=== PATIENT | male | born 1945 | race Caucasian/White ===

== ENCOUNTER 2017-11-15 11:38 | Inpatient (IN) | payer OTHER ==
[~2017-11-15] VITALS: Ht 182.9 cm; Wt 71.0 kg
--- NOTE | 2017-11-15 14:30 | ED UPPER/LOWER EXTREMITY COMPL ---
History of Present Illness General Chief Complaint: Lower Extremity Problems Stated Complaint: LOWER EXTREMITY SWELLING Source: patient Exam Limitations: no limitations Vital Signs & Intake/Output Vital Signs & Intake/Output Vital Signs Date Time Temp Pulse Resp B/P B/P Pulse O2 O2 Flow FiO2 Mean Ox Delivery Rate 11/15 1829 98.2 82 17 122/60 96 Room Air 11/15 1523 98.0 75 18 119/57 99 Room Air 11/15 1351 97.0 88 16 119/58 94 Room Air 11/15 1213 98.6 80 16 107/61 99 Room Air Allergies Coded Allergies: No Known Allergies (11/15/17) Triage Note: 72M C/O SWELLING TO BILATERAL FEET X4 DAYS. DENIES CARDIAC HISTORY, DENIES COUGH, SOB OR CHEST PAIN. PT HAS HX OF URINARY RETENTION AND DEMENTIA AAOX3 BUT CONFUSED ABOUT HIS MEDICATIONS. INTERMITTENT DIZZINESS BUT NONE AT PRESENT. -N/V/D OR PAIN Triage Nurses Notes Reviewed? yes Onset: Gradual Duration: day(s):, constant, continues in ED, getting worse Severity: mild, moderate HPI: Patient presents for evaluation of lower extremity edema that began earlier this week. Patient states that he has had no fever or cold symptoms or dyspnea associated with the swelling. Denies any prior episodes of swelling. He has been eating and drinking normally and although he urinated earlier today states his urine output has been diminished. Past History Travel History Traveled to [place] past 21 day No Medical History Any Pertinent Medical History? see below for history Neurological: Alzheimer's disease EENT: NONE Cardiovascular: NONE Respiratory: NONE Gastrointestinal: NONE Hepatic: NONE Renal: URINARY RETENTION Endocrine: hypothyroidism Surgical History Surgical History: non-contributory Psychosocial History What is your primary language Slovenian Tobacco Use: Never used Family History Hx Contributory? No Review of Systems Review of Systems Constitutional: Reports: no symptoms. EENTM: Reports: no symptoms. Respiratory: Reports: no symptoms. Cardiovascular: Reports: no symptoms. Gastrointestinal/Abdominal: Reports: no symptoms. Genitourinary: Reports: no symptoms. Musculoskeletal: Reports: no symptoms. Skin: Reports: see HPI. Neurological/Psychological: Reports: no symptoms. Hematologic/Endocrine: Reports: no symptoms. Immunological: Reports: no symptoms. All Other Systems: Reviewed and Negative Physical Exam Physical Exam General Appearance: SEE BELOW Comments: Gen.: Well-nourished, well-developed, no acute respiratory distress. Head: Normocephalic, atraumatic. Eyes: Normal inspection bilaterally Ears: Normal inspection bilaterally Nose: Normal inspection Throat/mouth : Moist mucosa Neck: Supple, full range of motion, no goiter Heart: Regular rate and rhythm Lungs: Quiet respirations Back: Normal range of motion Extremities: Lower extremities: Bilateral pitting edema of the ankle without signs of cellulitis, calves nontender. Neurologic: Cranial nerves grossly intact, speech is clear Skin: warm and dry Psychiatric: Calm, cooperative, no apparent delusions or hallucinations Progress Differential Diagnosis: RENAL FAILURE, CONGESTIVE HEART FAILURE Plan of Care: Orders Procedure Date/time Status Regular Diet 11/16 B Active CBC WITHOUT DIFFERENTIAL 11/15 1716 Complete Add-on Test (ER Only) 11/15 1530 Active TYPE & SCREEN (NOT X-MATCH) 11/15 1527 Complete HEPATIC FUNCTION PANEL 11/15 1445 Complete TSH REFLEX 11/15 1435 Complete CBC WITHOUT DIFFERENTIAL 11/15 1435 Complete BASIC METABOLIC PANEL 11/15 1435 Complete URINALYSIS 11/15 1218 Complete Laboratory Tests 11/15/17 1732: CBC w Diff NO MAN DIFF REQ, RBC 2.15 L, MCV 87.9, MCH 30.4, RDW 22.1 H, MPV 8.9, Gran % 12.6 L, Lymphocytes % 80.8 H, Monocytes % 3.1, Eosinophils % 2.4, Basophils % 1.1, Absolute Granulocytes 0.1 L, Absolute Lymphocytes 0.9 L, Absolute Monocytes 0 L, Absolute Eosinophils 0, Absolute Basophils 0, PUBS MCHC 34.5 11/15/17 1445: Anion Gap 7, Estimated GFR > 60, BUN/Creatinine Ratio 38.8 H, Glucose 98, Calcium 8.3 L, Total Bilirubin 1.1, Direct Bilirubin 0.3, AST 5 L, ALT 23, Alkaline Phosphatase 103, Total Protein 5.2 L, Albumin 3.0 L, TSH &T3 &Free T4 Intrp 0.353, CBC w Diff MAN DIFF ORDERED, RBC 1.95 L, MCV 87.6, MCH 30.4, RDW 22.2 H, MPV 8.7, Gran % 13.6 L, Lymphocytes % 77.4 H, Monocytes % 5.9, Eosinophils % 1.9, Basophils % 1.2, Absolute Granulocytes 0.1 L, Segmented Neutrophils 4 L, Absolute Lymphocytes 0.7 L, Lymphocytes 96 H, Absolute Monocytes 0.1, Absolute Eosinophils 0, Absolute Basophils 0, Platelet Estimate DECREASED, Poikilocytosis 3+, Anisocytosis 1+, Ovalocytes 2+, Elliptocytes 2+, PUBS MCHC 34.7 11/15/17 1225: Urine Color YEL, Urine Clarity CLEAR, Urine pH 6.5, Ur Specific [place] 1.020, Urine Protein NEG, Urine Ketones NEG, Urine Nitrite NEG, Urine Bilirubin NEG, Urine Urobilinogen 2.0 H, Ur Leukocyte Esterase NEG, Ur Microscopic EXAM NOT REQUIRED, Urine Hemoglobin NEG, Urine Glucose NEG Comments: 11/15/2017 7:13:23 PM I have updated [facility] twice on his test results and have also spoken with his over the phone. At the request of Dr. Peralta patient will be admitted to the hospitalist service for monitoring of what appears to be a pancytopenia or bone marrow disease. I discussed the patient's case with Dr. SWANSON. Departure Departure Disposition: STILL A PATIENT Condition: Stable Clinical Impression Primary Impression: Peripheral edema Referrals: Perry LANDAVERDE,Rome Mack (PCP/Family) Additional Instructions: Low-salt diet. Elevate your legs 2-3 times per day to reduce swelling. Consider compression stockings. Follow-up with your primary care physician this week for reevaluation and further testing as indicated. Return if any concerns or sudden worsening. Departure Forms: Customer Survey General Discharge Information Admission Note Spoke With: Gato Swanson MD Documentation of Exam: Documentation of any treatments & extenuating circumstances including Concerns Regarding Discharge (functional status, medication knowledge or non-compliance, living conditions, etc.) that warrant an admission rather than observation: Patient has a pancytopenia consistent with bone marrow failure. His low white blood cell count places him at high risk of overwhelming infection. His low hematocrit and hemoglobin has compromised his oxygen carrying capacity and puts him at risk of easy fatigability dyspnea and profound weakness. This patient's low platelet count places him at risk of bleeding particularly with even minor trauma. I feel he is a poor candidate for outpatient management given the above and now requires hospitalization for close monitoring of his white blood cell count, hematocrit, hemoglobin and platelet count. Hematology oncology consultation should be obtained for additional testing and consideration of marrow biopsy. I Feel this patient will require a multiple day hospitalization.
[2017-11-15 14:55] LABS: ABSOLUTE BASOPHIL COUNT 0 /CUMM (0.0-0.2); ABSOLUTE EOSINOPHIL COUNT 0 /CUMM (0.0-0.7); ABSOLUTE GRANULOCYTE CT 0.1 /CUMM (1.4-6.5); ABSOLUTE LYMPH COUNT 0.7 /CUMM (1.2-3.4)
[2017-11-15 14:58] LABS: ABSOLUTE MONOCYTE COUNT 0.1 /CUMM (0.10-0.60); BASOPHIL % 1.2 % (0.0-2.0); EOSINOPHIL % 1.9 % (0-5); MEAN CORPUSCULAR HGB 30.4 PG (27.0-31.0); MEAN CORPUSCULAR HGB CONC 34.7 G/DL (33.0-37.0); MEAN CORPUSCULAR VOLUME 87.6 FL (80.0-94.0); MEAN PLATELET VOLUME 8.7 FL (7.4-10.4); PLATELET COUNT 83 /CUMM (130-400); RBC DISTRIBUTION WIDTH 22.2 % (11.5-14.5); RED BLOOD CELL CT 1.95 /CUMM (4.70-6.10)
[2017-11-15 15:00] LABS: GRANULOCYTE % 13.6 % (42.2-75.2)
[2017-11-15 15:03] LABS: HEMATOCRIT 17.1 % (42-52)
[2017-11-15 17:54] LABS: ABSOLUTE BASOPHIL COUNT 0 /CUMM (0.0-0.2); ABSOLUTE EOSINOPHIL COUNT 0 /CUMM (0.0-0.7); ABSOLUTE GRANULOCYTE CT 0.1 /CUMM (1.4-6.5); ABSOLUTE MONOCYTE COUNT 0 /CUMM (0.10-0.60); PLATELET COUNT 91 /CUMM (130-400); RBC DISTRIBUTION WIDTH 22.1 % (11.5-14.5)
[2017-11-15 17:59] LABS: ABSOLUTE LYMPH COUNT 0.9 /CUMM (1.2-3.4); BASOPHIL % 1.1 % (0.0-2.0); EOSINOPHIL % 2.4 % (0-5); GRANULOCYTE % 12.6 % (42.2-75.2); MEAN CORPUSCULAR HGB 30.4 PG (27.0-31.0); MEAN CORPUSCULAR HGB CONC 34.5 G/DL (33.0-37.0); MEAN CORPUSCULAR VOLUME 87.9 FL (80.0-94.0); MEAN PLATELET VOLUME 8.9 FL (7.4-10.4); RED BLOOD CELL CT 2.15 /CUMM (4.70-6.10)
[2017-11-15 18:06] LABS: WHITE BLOOD CELL COUNT 1.1 /CUMM (4.8-10.8)
[2017-11-15 18:07] LABS: HEMATOCRIT 18.9 % (42-52)
--- NOTE | 2017-11-15 20:24 | History & Physical ---
Laverne Croft MD 11/15/172023: General Information and [facility] MD Statement: I have seen and personally examined NE CHIN and documented this H&P. The patient is a 72 year old M who presented with a patient stated chief complaint of [weakness, tiredness, bilateral leg swelling]. Source of Information: patient, family Exam Limitations: no limitations History of Present Illness: 72-year-old gentleman with past medical history of Alzheimer's dementia, hypothyroidism came with [facility] with complaints of weakness for the past 2 weeks, bilateral leg swelling for the past 2 days. Apparently patient was sent in his usual state of health, following which he developed weakness for the past 2 weeks which has gotten worse for the past 3 days associated with dizziness but with no fall or loss of consciousness. Patient also gives history of disturbed sleep for the past 2 weeks. Patient endorses a low discoloration of urine for a while. Patient endorses 35 LBS weight loss for the past 3 months with generalized lymphadenopathy for the past few years. Patient denies shortness of breath, fall, abdominal pain, fever with chills, cough with night sweats, right upper quadrant pain, sick contact, travel outside the country, [id number] medication, recent change in medication, tick bite, upper respiratory tract infection, flu, hematuria, hematochezia, liver disease. Patient gives history of chronic constipation for the past 2 years. Patient also has a past history of spontaneous pneumothorax 40 years ago which required a chest tube drainage, hepatitis 50 years ago treated [not sure what type of hepatitis], Rosasea with ? Steroid cream. Patient has recently seen a urologist for incontinence and was given oxybutynin. also gives a remote history of rashes following hot showers every now and then. According to the patient he sees Dr. Amador who is his primary care physician and was told by him that his lab works were normal so far. Patient is seeing Dr. De for facial takes [has got 4 Botox] Allergies/Medications Allergies: Coded Allergies: No Known Allergies (11/15/17) Home Med list Levothyroxine Sodium 150 MCG TABLET 1 TAB PO DAILY hypothyroidsm (Reported) Memantine HCl (Namenda) 10 MG TABLET 1 TAB PO BID dementia (Reported) Oxybutynin Chloride 5 MG TABLET 1 TAB PO BID urinary incontinence (Reported) Compliance With Home Meds: GOOD Past History Travel History Traveled to [place] past 21 day No Medical History Neurological: Alzheimer's disease EENT: NONE Cardiovascular: NONE Respiratory: NONE Gastrointestinal: NONE Hepatic: NONE Renal: URINARY RETENTION Endocrine: hypothyroidism Surgical History Surgical History: non-contributory Past Family/Social History Family History Relations & Conditions if any BROTHER Relation not specified for: Thyroid cancer Psychosocial History Where do you live? Home Who Do You Live With? spouse Services at Home: None Primary Language: Trinidadian Smoking Status: Former Smoker ETOH Use: denies use Illicit Drug Use: denies illicit drug use Functional Ability ADLs Independent: dressing. Ambulation: independent IADLs Independent: shopping, housework, finances, food prep, telephone, transportation , medication admin. Review of Systems Review of Systems Constitutional: Reports: malaise, unexplained weight loss. EENTM: Reports: no symptoms. Cardiovascular: Reports: no symptoms. Respiratory: Reports: no symptoms. GI: Reports: no symptoms. Genitourinary: Reports: no symptoms. Musculoskeletal: Reports: no symptoms. Exam & Diagnostic Data Last 24 Hrs of Vital Signs/I&O Vital Signs Date Time Temp Pulse Resp B/P B/P Pulse O2 O2 Flow FiO2 Mean Ox Delivery Rate 11/15 2227 98.5 69 18 107/55 96 Room Air 11/15 1829 98.2 82 17 122/60 96 Room Air 11/15 1523 98.0 75 18 119/57 99 Room Air 11/15 1351 97.0 88 16 119/58 94 Room Air 11/15 1213 98.6 80 16 107/61 99 Room Air Intake & Output 11/16 0800 11/16 0000 11/15 1600 Intake Total 0 Output Total Balance 0 Intake, Oral 0 Patient 156 lb 160 lb Weight Weight Reported by Patient Standing Scale Measurement Method Physical Exam General Appearance Alert, Oriented X3, Cooperative, No Acute Distress Skin No Rashes, No Breakdown HEENT PERRLA, conjunctivae pale Neck bilateral posterior cervical and anterior cervical lymphadenopathy noted, right inguinal lymph nodes noted Cardiovascular Normal S1, Normal S2, No Murmurs Lungs Normal Air Movement Abdomen mild hepatomegaly Neurological Normal Speech, Strength at 5/5 X4 Ext, Normal Tone, Sensation Intact Extremities bilateral leg swelling Vascular Normal Pulses Diagnostic Data Other Results CT abdomen ABDOMEN/PELVIS: - There is marked splenomegaly and there is heterogeneous attenuation that appears well demarcated throughout areas of the spleen which could be secondary to lymphomatous infiltration and/or splenic infarct. The enlarged spleen results in mass effect on the left kidney. - The prostate gland and seminal vesicles are enlarged. - Small volume intra-abdominal ascites. - Small mesenteric and retroperitoneal lymph nodes. -Small inguinal and iliac chain lymph nodes without pathologic size criteria lymphadenopathy in these areas. Assessment/Plan Assessment: 72-year-old gentleman with past medical history of Alzheimer's dementia, hypothyroidism came with [facility] with complaints of weakness for the past 2 weeks which is worsened for the past 3 days associated with bilateral leg swelling for the past 2 days admitted to [facility] for pancytopenia evaluation and management Labs WBC 1.1, RBC 2.15, hemoglobin 6.5, hematocrit 18.9, platelet 91, sodium 139, potassium 4.1, calcium 8.3, albumin 3, TSH 0.3 1 problem list 1. Pancytopenia 2. Alzheimer's dementia 3. Hypothyroidism 4. Malnutrition Pancytopenia * Patient last lab work in November 2016 was found to be normal. Patient's had an decline in all cell line, can be secondary due to viral infection/ medication /radiation [thyroid cancer status post surgery/radiation]/other infectious causes. * We will place the hematology and oncology consult in a.m to help us with the management and patient informed that he might need a bone marrow tap. We will give 1 unit of blood transfusion in view of his low hemoglobin. * We will send vitamin B12, folic acid, hepatitis panel, HIV, peripheral smear, TSH, urine analysis, prealbumin, LDH. * We will continue this Synthyroid and oxybutynin. We will hold mementine for now. * Code-full code * DVT prophylaxis-subcutaneous heparin, Alps As Ranked By This Provider Problem List: 1. Pancytopenia Core Measures/Misc (08/07) Acute Coronary Syndrome ACS Diagnosis: No Congestive Heart Failure Congestive Heart Failure Diagnosis No Cerebrovascular Accident CVA/TIA Diagnosis: No VTE (View Protocol) VTE Risk Factors Age>40 No Mechanical VTE Prophylaxis d/t Other No VTE Pharm Prophylaxis d/t Other Sepsis (View protocol) Sepsis Present: No Fidel De La Fuente 11/16/17 0817: Resident Review Statement Resident Statement: examined this patient, discussed with internal medicine physician, agreed with internal medicine physician, reviewed images, amended to note Other Findings: Mr Chin is a 72-year-old man who was known to be in his usual state of health until a few months ago. Patient is a poor historian given history of dementia, and history was obtained from his . He is a PMHx of recent dx of dementia (on memantine), and ? thyroid cancer requiring surgery and radiation to the neck( dates unclear), remote history of hepatitis (type unclear), and urinary incontinence. Since that time he had dementia and was started on memantine, he developed occasional dizziness associated with drug intake. Reported weight loss of approximately 35 pounds in the last 3 months. He also reported decreased by mouth intake, and increased somnolence. In the last 1 week, reported increased tiredness and dizziness. He did not have any loss of consciousness, or falls. Reported to have increased pedal edema, which was noticed in the last few weeks. No fever, flulike symptoms, and bites; nausea vomiting, diarrhea, melena/bleeding per rectum. Reported remote history of rash on the back, which resolved on its own. At the time of admission,-vitals 98.6, pulse rate 80, respirations 16, blood pressure 122/60, 99% on room air. On examination, he was found to have pallor, posterior cervical lymphadenopathy, no icterus. Also was found to have hepatosplenomegaly, inguinal lymphadenopathy, no abdominal tenderness. Heart and lungs-within normal limits. 2+ pitting edema. Pertinent lab findings: WBC 1.0, absolute neutrophil count of 176, hemoglobin 5.9 (17.7 in 11/2016), platelets 83 (456 in 11/2016). Liver chemistries within normal limits. Total protein and albumin on the lower side. Urinalysis revealed urobilinogen elevation (significance unknown). LDH slightly elevated. DIC panel-PT 14.9, INR 1.42, fibrinogen activity, fibrin degradation products slightly elevated than 10 less than 40, d-dimer 580. (Not in acute DIC). TSH within normal limits. Vitamin B12 was significantly elevated. CT scan abdomen-revealed marked spend megaly and heterogeneous attenuation of spleen likely lymphogenous spread. There is partially imaged lymphadenopathy within the infrahyoid neck bilaterally within level III and level VA. The partially imaged right internal jugular vein is narrowed by adjacent cervical adenopathy. There is no mediastinal, hilar, or axillary lymphadenopathy. Etiology in this case is likely lymphoproliferative disorder. He had near normal or slightly elevated in number of cell lines, with predominant increase in lymphocytes. He also has neutropenia, and anemia. Found to have trilineage deficiencies, including white cell, RBCs and platelets which clearly points to what her lymphoproliferative disorder. Vitamin B12 was found to be elevated in this case. Since the patient has lymphadenopathy and splenomegaly, it points to a possible lymphoma. Given his history of radiation to his neck, it is likely that this could be contributing to the etiology. As a part of her regular workup, infectious etiology such as HBV, HCV, EBV, other viruses need to be ruled out. Reticulocyte count was barely elevated, indicating hypoactive bone marrow at this time; which warrants a bone marrow biopsy. Plan: #1 pancytopenia-likely causing symptoms in his case. Unsure if the dizziness is due to symptomatic anemia, or medication adverse effect. However could be treated with 1 PRBC transfusion. Considering a bone marrow pathology, a biopsy could be obtained. Defer the decision to the simulation engineer at this time. Continue treating anemia, with PRBCs transfusions. Follow-up infectious etiology workup at this time. Peripheral smear to be reviewed. Follow-up lymph node biopsy as per simulation engineer. #2 dementia-hold memantine at this time. Restart after having a conversation with the patient's primary care physician or neurologist. My feeling is that this drug is likely contribution to his dizziness. housekeeping: DVT prophylaxis-ALPS. Avoid heparin. Medical reconciliation #1 oxybutynin-continue #2 memantine-held #3 levothyroxine-continued. Gato Swanson 11/16/17 0903: Attending MD Review Statement Attending Statement Attending MD Statement: examined this patient, discuss w/resident/PA/SENIOR COGNOS DEVELOPER, agreed w/resident/PA/SENIOR COGNOS DEVELOPER, reviewed EMR data (avail), reviewed images, amended to note Attending Assessment/Plan: CC: Fatigue, bilateral lower extremity pain PMH: Dementia, chronic facial twitching, hypothyroidism S/P thyroidectomy for thyroid cancer S/P radiation Patient has dementia, very forgetful, history is mostly obtained from patient's . Patient has been appearing tired and weak since last 3 weeks and was more worse in last 3 days with more dizziness, no lightheadedness or presyncope, no chest pain or palpitations. They have noticed significant weight loss over last few months. also notices bilateral lower extremity swelling and pain that/ he was brought in ER. Currently patient refuses any leg pain. Otherwise ROS unremarkable Vitals: Afebrile, pulse in 80s, RR 16, blood pressure 119/58, saturating 99% on room air. On examination: A, I had to reorient him to place, oriented to time and person but patient has long time recalling cooperative, no acute distress, neck supple, JVD normal, cervical, inguinal lymphadenopathy, mucosa moist, no focal neurological deficit, pedal edema , no obvious skin rashes or inflammation CVS: S1-S2, RRR. RS: Clear to auscultate bilaterally. Abdomen: Soft, NT, ND, edge of liver is palpable, splenomegaly palpable, bowel sounds present. Labs: WBC 1.0, hemoglobin 5.9, hematocrit 17.1, platelet 83, neutrophils 13%, lymphocytes 77%, absolute granulocyte 100, absolute lymphocyte 700 BMP, LFT unremarkable, LDH 218, INR 1.42, UA unremarkable except urobilinogen Assessment and plan 72-year-old male with past medical history significant for Dementia, chronic facial twitching, hypothyroidism S/P thyroidectomy for thyroid cancer S/P radiation presented in ER for chronic fatigue, weight loss, bilateral lower extremity edema and pain and has mild dizziness. On examination he was found to have multiple lymph nodes the cervical area, left inguinal area, splenomegaly. In ER patient was found to have pancytopenia and lymphocytosis. We obtain CT chest and abdomen with contrast which showed significant lymphadenopathy, splenomegaly. All his labs were normal in November 2016. Highly suspicious of malignancy, obtaining workup, him on consult, transfused 1 unit PRBC for symptomatic anemia. By the time CT scan results came back patient's had left, I did not discuss the findings with the patient's . + Pancytopenia : ? Bone marrow depression unclear etiology, leukemia versus lymphoma versus myelodysplasia + History of Dementia, chronic facial twitching, hypothyroidism S/P thyroidectomy for thyroid cancer S/P radiation - Admit to general medicine - And transfuse 1 unit PRBC - Discontinue Namenda - Peripheral smear - Hemo-oncology consult - Check HIV, hepatitis, B12 - Neutropenic precautions - Continue rest of his home medications - DVT prophylaxis with Alps only for significant thrombocytopenia
[2017-11-15 21:34] LABS: PT 14.9 SEC (9.4-12.5); PTT 26 SEC (25-37)
[2017-11-15] MEDS ORDERED: OXYBUTYNIN CHLOR5 M2 PO (23:55)
[2017-11-15] MEDS ORDERED: NAMENDA10 M2 PO (23:55)
[2017-11-15] MEDS ORDERED: LEVOTHYROXINE150 MCG PO (23:56)
--- NOTE | 2017-11-16 02:03 | CT SCAN REPORT ---
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 COMPARISON: None available. TECHNIQUE: A contrast-enhanced CT of the chest, abdomen, and pelvis are obtained following the administration of 95 mL of Optiray 320 without complication. FINDINGS: CT CHEST: There is no focal consolidation or pneumothorax. Trace bilateral pleural effusions. There is partially imaged lymphadenopathy within the infrahyoid neck bilaterally within level III and level VA. The partially imaged right internal jugular vein is narrowed by adjacent cervical adenopathy. There is dependent atelectasis bilaterally. No focal consolidation, pleural effusion, or pneumothorax. There is a 7 mm groundglass nodule at the left lung apex on image 9 of series 3. A 6-12 month follow-up CT is recommended per Fleischner criteria. The thoracic aorta is normal in caliber. There is a small pericardial effusion. No significant soft tissue findings within the chest. No acute osseous abnormalities. Degenerative changes throughout the thoracic spine. CT ABDOMEN/PELVIS: There are a few cysts within the liver. The adrenal glands, gallbladder, and pancreas are normal. There is marked splenomegaly and there is heterogeneous attenuation that appears well demarcated throughout areas of the spleen which could be secondary to lymphomatous infiltration and/or splenic infarct. Spleen measures up to 16 cm in size. The kidneys exhibit symmetric nephrograms without evidence of hydronephrosis or nephrolithiasis. There is a right renal cyst. The enlarged spleen results in mass effect on the left kidney which is otherwise unremarkable. The large and small bowel are normal in caliber without evidence of mechanical obstruction. No focal inflammatory changes adjacent to the large or the small bowel. The appendix is normal. Small volume intra-abdominal ascites. No free air. Small mesenteric and retroperitoneal lymph nodes. Small inguinal and iliac chain lymph nodes without pathologic size criteria lymphadenopathy in these areas. The prostate gland and seminal vesicles are enlarged. There are no acute osseous abnormalities. No significant soft tissue abnormality. IMPRESSION: CHEST: - There is partially imaged lymphadenopathy within the infrahyoid neck bilaterally within level III and level VA. The partially imaged right internal jugular vein is narrowed by adjacent cervical adenopathy. There is no mediastinal, hilar, or axillary lymphadenopathy. - There is a small pericardial effusion. There are trace bilateral pleural effusions. - There is a 7 mm groundglass nodule at the left lung apex on image 9 of series 3. A 6-12 month follow-up CT is recommended per Fleischner criteria. ABDOMEN/PELVIS: - There is marked splenomegaly and there is heterogeneous attenuation that appears well demarcated throughout areas of the spleen which could be secondary to lymphomatous infiltration and/or splenic infarct. The enlarged spleen results in mass effect on the left kidney. - The prostate gland and seminal vesicles are enlarged. - Small volume intra-abdominal ascites. - Small mesenteric and retroperitoneal lymph nodes. - Small inguinal and iliac chain lymph nodes without pathologic size criteria lymphadenopathy in these areas.
[2017-11-16 06:38] VITALS: BP 110/60
--- NOTE | 2017-11-16 07:15 | PN- Housestaff ---
Simi LANDAVERDE,Daniel 11/16/17 0714: Subjective Follow-up For: Pancytopenia Subjective: Patient was seen and examined at bedside. He was resting comfortably. He had no acute events overnight. He states that his fatigue has improved slightly, and continues to complain of lower summary swelling right >left. He currently offers no other complaints. He denies any chest pain, shortness of breath, lightheadedness, dizziness, nausea, vomiting, fever, chills, melena, hematochezia. Review of Systems Constitutional: Denies: chills, fever. EENTM: Reports: no symptoms. Cardiovascular: Reports: peripheral edema. Denies: chest pain, palpitations. Respiratory: Denies: cough, short of breath. Gastrointestinal: Denies: melena, nausea, bloody stool, vomiting. Genitourinary: Reports: no symptoms. Musculoskeletal: Reports: no symptoms. Objective Last 24 Hrs of Vital Signs/I&O Vital Signs Date Time Temp Pulse Resp B/P B/P Pulse O2 O2 Flow FiO2 Mean Ox Delivery Rate 11/16 0638 97.8 69 20 110/60 98 Room Air 11/15 2227 98.5 69 18 107/55 96 Room Air 11/15 1829 98.2 82 17 122/60 96 Room Air 11/15 1523 98.0 75 18 119/57 99 Room Air 11/15 1351 97.0 88 16 119/58 94 Room Air 11/15 1213 98.6 80 16 107/61 99 Room Air Intake & Output 11/16 0800 11/16 0000 11/15 1600 Intake Total 0 Output Total 550 Balance -550 0 Intake, Oral 0 Output, Urine 550 Patient 156 lb 160 lb Weight Weight Reported by Patient Standing Scale Measurement Method Physical Exam General Appearance: Alert, Oriented X3, Cooperative, No Acute Distress Skin Temp/Moisture Exam: Warm/Dry Sepsis Skin Exam (color): Pale HEENT: Atraumatic, EOMI, Mucous Membr. moist/pink Neck: lymphadenopathy of the R and L lateral neck Cardiovascular: Regular Rate, Normal S1, Normal S2, No Murmurs Lungs: Clear to Auscultation, Normal Air Movement Abdomen: Normal Bowel Sounds, Soft, No Tenderness, splenomegaly Neurological: Normal Speech, Sensation Intact Extremities: 1+ pitting edema RLE Vascular: Normal Pulses, Pulses Symmetrical Current Medications: Current Medications Sig/Abigail Start time Last Medication Dose Route Stop Time Status Admin Acetaminophen 650 MG Q8P PRN 11/15 2345 AC PO Levothyroxine Sodium 0.15 MG DAILY AC 11/16 0700 AC 11/16 PO 0535 Oxybutynin Chloride 5 MG BID 11/16 1000 AC PO Tramadol HCl 50 MG Q8P PRN 11/15 2345 AC PO Last 24 Hrs of Lab/Tonny Results Last 24 Hrs of Labs/Mics: Laboratory Tests 11/16/17 1639: CBC w Diff Pending, WBC Pending, RBC Pending, Hgb Pending, Hct Pending, MCV Pending, MCH Pending, RDW Pending, Plt Count Pending, MPV Pending, PUBS MCHC Pending 11/16/17 0735: Anion Gap 6, Estimated GFR > 60, BUN/Creatinine Ratio 32.5 H, CBC w Diff MAN DIFF ORDERED, RBC 2.04 L, MCV 88.2, MCH 30.2, RDW 21.1 H, MPV 9.4, Gran % 18.0 L, Lymphocytes % 73.3 H, Monocytes % 4.5, Eosinophils % 3.0, Basophils % 1.2, Absolute Granulocytes 0.2 L, Segmented Neutrophils 12 L, Absolute Lymphocytes 0.7 L, Lymphocytes 86 H, Monocytes 2, Absolute Monocytes 0 L, Absolute Eosinophils 0, Absolute Basophils 0, Platelet Estimate VERIFIED BY SMEAR, Poikilocytosis 1+, Anisocytosis 1+, Ovalocytes 1+, Elliptocytes FEW, PUBS MCHC 34.2 11/15/17 2315: D-Dimer High Sensitivty 580 H, Hepatitis A IgM Ab NONREACTIVE, Hep Bs Antigen Pending, Hep B Core IgM Ab Conf Pending, Hepatitis C Antibody NONREACTIVE, HIV 1 &2 Ab Western Blot NONREACTIVE 11/15/17 2008: PT 14.9 H, INR 1.42 H, APTT 26, Fibrinogen Activity 219, Fibrin Degrad Products >10 but < 40 ug/ml H 11/15/17 1732: CBC w Diff NO MAN DIFF REQ, RBC 2.15 L, MCV 87.9, MCH 30.4, RDW 22.1 H, MPV 8.9, Gran % 12.6 L, Lymphocytes % 80.8 H, Monocytes % 3.1, Eosinophils % 2.4, Basophils % 1.1, Absolute Granulocytes 0.1 L, Absolute Lymphocytes 0.9 L, Absolute Monocytes 0 L, Absolute Eosinophils 0, Absolute Basophils 0, PUBS MCHC 34.5 Orders Stool Guaiac Testing: negative Radiology Findings: RLE venous doppler US Normal triplex scan without evidence of deep venous thrombosis involving the lower extremity. Assessment/Plan Assessment: Patient is a 72-year-old [place] male with a PMH significant for dementia, thyroid cancer status post thyroidectomy and radiation with subsequent hypothyroidism who presented to the ED complaining of fatigue and lower extremity swelling. #Pancytopenia Last available records from [facility] were 12/07 and normal. Currently pancytopenic with cervical lymphadenopathy and history of cancer. Have a, C and HIV serology was negative, hep B and tickborne diseases panel currently pending. I had a lengthy discussion with both the patient and his today at bedside of the potential differential diagnoses including infections and malignancies including leukemia and lymphoma. -Patient to go for bone marrow aspiration and biopsy tomorrow -Status post 2 units PRBC transfusion, will follow-up H/H tonight and tomorrow morning and transfuse him as necessary #L any swelling R >L Venous Doppler ultrasound was negative for signs of DVT. #Chronic medical problems including hypothyroidism. -Continue home dose of levothyroxine #DVT prophylaxis -ALPS, no pharmacologic DVT prophylaxis given thrombocytopenia #CODE STATUS -Full code Problem List: 1. Pancytopenia 2. Peripheral edema Pain Ratin Pain Location: none Pain Goal: Remain pain free Pain Plan: pain pathway Tomorrow's Labs & Rationales: boom Padilla MD,Jus 11/16/17 1550: Attending MD Review Statement Attending Statement Attending MD Statement: examined this patient, discuss w/resident/PA/PRECISION LATHE OPERATOR, agreed w/resident/PA/PRECISION LATHE OPERATOR, reviewed EMR data (avail), discussed with nursing, discussed with case mgmt, amended to note Attending Assessment/Plan: Patient seen and examined. Resting comfortably not in any acute distress. Afebrile. Hemodynamically stable. Following 1 unit of PRBC hemoglobin improved from 5.9 to only 6.2. Denies chest pain. Denies shortness of breath. On examination noted to have cervical lymphadenopathy. Heart sounds are regular. Lungs are clear bilaterally. Abdomen is soft and nontender. He has a palpable spleen. He has right lower extremity pedal edema. Dopplers were obtained that showed no evidence of DVT. Plan: -Patient to complete 2 units of PRBCs today. Repeat CBC post transfusion. Keep hemoglobin level greater than 7. -Scheduled to undergo bone marrow aspiration tomorrow. -Follow-up with the oncology service regarding results of peripheral smear. -Maintain neutropenic precautions. -Maintain Thrombocytopenia precautions.
--- NOTE | 2017-11-16 07:41 | Cons- Hematology ---
General Information and HPI Consulting Request Date of Consult: 11/16/17 Requested By: Gato Swanson MD History of Present Illness: 72-year-old man admitted to the hospital with weakness and 35 pound weight loss. The patient was found to be profoundly pancytopenic. Patient denies fevers and sweats. Patient denies increased bleeding or bruising. Allergies/Medications Allergies: Coded Allergies: No Known Allergies (11/15/17) Home Med List: Levothyroxine Sodium 150 MCG TABLET 1 TAB PO DAILY hypothyroidsm (Reported) Memantine HCl (Namenda) 10 MG TABLET 1 TAB PO BID dementia (Reported) Oxybutynin Chloride 5 MG TABLET 1 TAB PO BID urinary incontinence (Reported) Current Medications: Current Medications Sig/Abigail Start time Last Medication Dose Route Stop Time Status Admin Acetaminophen 650 MG Q8P PRN 11/15 2345 AC PO Levothyroxine Sodium 0.15 MG DAILY AC 11/16 0700 AC 11/16 PO 0535 Oxybutynin Chloride 5 MG BID 11/16 1000 AC PO Tramadol HCl 50 MG Q8P PRN 11/15 2345 AC PO Review of Systems Review of Systems: Patient denies headaches but complains of occasional dizziness. Patient denied shortness of breath cough chest pain or hemoptysis. Patient denied nausea vomiting change of bowel habits or blood loss. Patient denies abdominal pain. Patient denies dysuria or hematuria. Patient denies bone aches or focal neurologic deficit Past History Travel History Traveled to [place] past 21 day No Medical History Blood Transfusion Hx: No Neurological: Alzheimer's disease EENT: NONE Cardiovascular: NONE Respiratory: NONE Gastrointestinal: NONE Hepatic: NONE Renal: URINARY RETENTION Endocrine: hypothyroidism Surgical History Surgical History: non-contributory Family History Relations & Conditions If Any: BROTHER Relation not specified for: Thyroid cancer Psychosocial History Where Do You Live? Home Who Do You Live With? spouse Services at Home: None Primary Language: Kenyan Smoking Status: Former Smoker ETOH Use: denies use Illicit Drug Use: denies illicit drug use Functional Ability ADLs Independent: dressing. Ambulation: independent IADLs Independent: shopping, housework, finances, food prep, telephone, transportation , medication admin. Exam & Diagnostic Data Vital Signs and I&O Vital Signs Date Time Temp Pulse Resp B/P B/P Pulse O2 O2 Flow FiO2 Mean Ox Delivery Rate 11/16 0638 97.8 69 20 110/60 98 Room Air 11/15 2227 98.5 69 18 107/55 96 Room Air 11/15 1829 98.2 82 17 122/60 96 Room Air 11/15 1523 98.0 75 18 119/57 99 Room Air 11/15 1351 97.0 88 16 119/58 94 Room Air 11/15 1213 98.6 80 16 107/61 99 Room Air Intake & Output 11/16 0800 11/16 0000 11/15 1600 Intake Total 470 0 Output Total 550 Balance -80 0 Intake, Blood 350 Product Intake, Oral 120 0 Output, Urine 550 Patient 156 lb 160 lb Weight Weight Reported by Patient Standing Scale Measurement Method Gen.: in NAD ENT: Sclera anicteric Chest: Normal respiratory effort, clear breath sounds Cor: RRR, no extra sounds Abdomen: Soft, bowel sounds present, no tenderness, no rebound, ?palp spleen Extremities: Without clubbing, cyanosis, patient wearing boots with mild bilateral lower extremity edema Neurology: Alert and oriented 3, no gross deficit Skin: No rashes Last 48 Hours of Lab Results: Laboratory Tests 11/15 Coagulation PT (9.4 - 12.5 SEC) 14.9 H INR (0.90 - 1.17) 1.42 H APTT (25 - 37 SEC) 26 Fibrinogen Activity (200 - 393 MG/DL) 219 Fibrin Degrad Products (< 10 ug/ml) >10 but < 40 ug/ml H D-Dimer High Sensitivty (0 - 243 ng/ml) 580 H Serology Hepatitis A IgM Ab Pending Hep Bs Antigen Pending Hep B Core IgM Ab Conf Pending Hepatitis C Antibody Pending HIV 1&2 Ab Western Blot Pending 11/15 1492 Hematology CBC w Diff NO MAN DIFF REQ WBC (4.8 - 10.8 /CUMM) 1.1 *L RBC (4.70 - 6.10 /CUMM) 2.15 L Hgb (14.0 - 18.0 G/DL) 6.5 *L Hct (42 - 52 %) 18.9 *L MCV (80.0 - 94.0 FL) 87.9 MCH (27.0 - 31.0 PG) 30.4 RDW (11.5 - 14.5 %) 22.1 H Plt Count (130 - 400 /CUMM) 91 L MPV (7.4 - 10.4 FL) 8.9 Gran % (42.2 - 75.2 %) 12.6 L Lymphocytes % (20.5 - 51.1 %) 80.8 H Monocytes % (1.7 - 9.3 %) 3.1 Eosinophils % (0 - 5 %) 2.4 Basophils % (0.0 - 2.0 %) 1.1 Absolute Granulocytes (1.4 - 6.5 /CUMM) 0.1 L Absolute Lymphocytes (1.2 - 3.4 /CUMM) 0.9 L Absolute Monocytes (0.10 - 0.60 /CUMM) 0 L Absolute Eosinophils (0.0 - 0.7 /CUMM) 0 Absolute Basophils (0.0 - 0.2 /CUMM) 0 PUBS MCHC (33.0 - 37.0 G/DL) 34.5 11/15 1445 Chemistry Sodium (137 - 145 mmol/L) 139 Potassium (3.5 - 5.1 mmol/L) 4.1 Chloride (98 - 107 mmol/L) 104 Carbon Dioxide (22 - 30 mmol/L) 29 Anion Gap (5 - 16) 7 BUN (9 - 20 mg/dL) 31 H Creatinine (0.7 - 1.2 mg/dL) 0.8 Estimated GFR (>60 ml/min) > 60 BUN/Creatinine Ratio (7 - 25 %) 38.8 H Glucose (65 - 99 mg/dL) 98 Calcium (8.4 - 10.2 mg/dL) 8.3 L Total Bilirubin (0.2 - 1.3 mg/dL) 1.1 Direct Bilirubin (< 0.4 mg/dL) 0.3 AST (17 - 59 U/L) 5 L ALT (21 - 72 U/L) 23 Alkaline Phosphatase (< 127 U/L) 103 Lactate Dehydrogenase (313 - 618 U/L) 218 L Total Protein (6.3 - 8.2 g/dL) 5.2 L Albumin (3.5 - 5.0 g/dL) 3.0 L Prealbumin (17.6 - 36.0 mg/dL) 16.3 L Vitamin B12 (239 - 931 pg/mL) > 1000 H Folate (2.76 - 20.0 ng/mL) 7.8 TSH &T3 &Free T4 Intrp (0.27 - 4.20 uIU/mL) 0.353 Hematology CBC w Diff MAN DIFF ORDERED WBC (4.8 - 10.8 /CUMM) 1.0 *L RBC (4.70 - 6.10 /CUMM) 1.95 L Hgb (14.0 - 18.0 G/DL) 5.9 *L Hct (42 - 52 %) 17.1 *L MCV (80.0 - 94.0 FL) 87.6 MCH (27.0 - 31.0 PG) 30.4 RDW (11.5 - 14.5 %) 22.2 H Plt Count (130 - 400 /CUMM) 83 L MPV (7.4 - 10.4 FL) 8.7 Gran % (42.2 - 75.2 %) 13.6 L Lymphocytes % (20.5 - 51.1 %) 77.4 H Monocytes % (1.7 - 9.3 %) 5.9 Eosinophils % (0 - 5 %) 1.9 Basophils % (0.0 - 2.0 %) 1.2 Absolute Granulocytes (1.4 - 6.5 /CUMM) 0.1 L Segmented Neutrophils (42.2 - 75.2 %) 4 L Absolute Lymphocytes (1.2 - 3.4 /CUMM) 0.7 L Lymphocytes (20.5 - 51.1 %) 96 H Absolute Monocytes (0.10 - 0.60 /CUMM) 0.1 Absolute Eosinophils (0.0 - 0.7 /CUMM) 0 Absolute Basophils (0.0 - 0.2 /CUMM) 0 Platelet Estimate (ADEQUATE) DECREASED Poikilocytosis 3+ Anisocytosis 1+ Ovalocytes 2+ Elliptocytes 2+ PUBS MCHC (33.0 - 37.0 G/DL) 34.7 Retic Count (0.5 - 2.0 %) 2.14 H 11/15 1225 Urines Urine Color (YEL,AMB,STR) YEL Urine Clarity (CLEAR) CLEAR Urine pH (5.0 - 8.0) 6.5 Ur Specific Munith (1.001 - 1.035) 1.020 Urine Protein (NEG,<30 MG/DL) NEG Urine Ketones (NEG) NEG Urine Nitrite (NEG) NEG Urine Bilirubin (NEG) NEG Urine Urobilinogen (0.1 - 1.0 EU/dl) 2.0 H Ur Leukocyte Esterase (NEG) NEG Ur Microscopic EXAM NOT REQUIRED Urine Hemoglobin (NEG) NEG Urine Glucose (N MG/DL) NEG In November 2016: Hematocrit 55.4 white blood count 10,400 lately count 456,000 Recent PSA 0.8 Imaging/Other Studies: CT chest abdomen and pelvis-cervical lymphadenopathy, small pericardial effusion , splenomegaly with attenuated parenchyma, prominent lymphadenopathy in the abdomen and pelvis Assessment/Plan Assessment: Pancytopenia-rapid onset pancytopenia associated with marked weight loss, significant splenomegaly in a man with previous erythrocytosis,? Previous myeloproliferative disorder. Vitamin B12 and folic acid levels are normal. Reticulocyte count is low suggesting this is all a primary bone marrow issue. Doubt this represents an atypical infectious process but serologies are pending. Recommend- Transfuse RBCs as necessary, now no indication for platelet transfusion I will personally review the peripheral smear Please arrange with interventional radiology-bone marrow aspiration and biopsy with routine path pathology, flow cytometry and cytogenetics, this should be performed today if possible Neutropenic precautions Recommendations: .. Consult Acknowledgment - Thank you for your consult request.
[2017-11-16 08:49] LABS: ABSOLUTE BASOPHIL COUNT 0 /CUMM (0.0-0.2); ABSOLUTE EOSINOPHIL COUNT 0 /CUMM (0.0-0.7); ABSOLUTE GRANULOCYTE CT 0.2 /CUMM (1.4-6.5); ABSOLUTE MONOCYTE COUNT 0 /CUMM (0.10-0.60)
[2017-11-16 09:01] LABS: ABSOLUTE LYMPH COUNT 0.7 /CUMM (1.2-3.4); BASOPHIL % 1.2 % (0.0-2.0); MEAN CORPUSCULAR HGB 30.2 PG (27.0-31.0); MEAN CORPUSCULAR HGB CONC 34.2 G/DL (33.0-37.0); MEAN CORPUSCULAR VOLUME 88.2 FL (80.0-94.0); MEAN PLATELET VOLUME 9.4 FL (7.4-10.4); PLATELET COUNT 77 /CUMM (130-400); RBC DISTRIBUTION WIDTH 21.1 % (11.5-14.5); RED BLOOD CELL CT 2.04 /CUMM (4.70-6.10)
--- NOTE | 2017-11-16 09:07 | Admission Certification ---
Admission Certification Certification Statement - As attending physician, I certify that at the time of - admission, based on clinical presentation, severity of - symptoms, need for further diagnostic testing and - therapeutic interventions, and risk of adverse outcomes - without in-hospital treatment, in my clinical assessment, - this patient requires an acute hospital stay for a minimum - of two nights or longer. I have also considered psychsocial - factors such as support system, advanced age, financial - issues, cognitive issues, and failed out-patient treatments, - past re-admission history, safety of patient, and lack of - compliance as applicable. Specific rationale supporting this admission is: Pancytopenia, symptomatic anemia, significant neutropenia
[2017-11-16 09:14] LABS: WHITE BLOOD CELL COUNT 0.9 /CUMM (4.8-10.8)
[2017-11-16 13:43] VITALS: BP 102/52
--- NOTE | 2017-11-16 14:51 | ULTRASOUND REPORT ---
EXAMINATION: US TRIPLEX LOWER EXTREMITY, RIGHT CLINICAL INFORMATION: Pain in the right lower extremity. No prior history. COMPARISON: None TECHNIQUE: Color-flow triplex imaging with spectral analysis and compression Doppler were performed on the lower extremity. FINDINGS: Respiratory variation, normal compression and augmented flow are noted throughout the lower extremity. The visualized common femoral vein, superficial femoral vein, profunda femoral vein, popliteal vein and midcalf peroneal and posterior tibial venous segments show no evidence of deep venous thrombosis. There is no Valenzuela's cyst. IMPRESSION: Normal triplex scan without evidence of deep venous thrombosis involving the lower extremity.
[2017-11-16 17:55] LABS: ABSOLUTE BASOPHIL COUNT 0 /CUMM (0.0-0.2); ABSOLUTE EOSINOPHIL COUNT 0 /CUMM (0.0-0.7); ABSOLUTE GRANULOCYTE CT 0.1 /CUMM (1.4-6.5); ABSOLUTE LYMPH COUNT 0.8 /CUMM (1.2-3.4); ABSOLUTE MONOCYTE COUNT 0 /CUMM (0.10-0.60); BASOPHIL % 1.6 % (0.0-2.0); EOSINOPHIL % 1.6 % (0-5); GRANULOCYTE % 12.5 % (42.2-75.2); MEAN CORPUSCULAR HGB 30.1 PG (27.0-31.0); MEAN CORPUSCULAR HGB CONC 34.5 G/DL (33.0-37.0); MEAN CORPUSCULAR VOLUME 87.2 FL (80.0-94.0); MEAN PLATELET VOLUME 9.2 FL (7.4-10.4); PLATELET COUNT 76 /CUMM (130-400); RBC DISTRIBUTION WIDTH 19.8 % (11.5-14.5); RED BLOOD CELL CT 2.18 /CUMM (4.70-6.10)
[2017-11-16 22:29] VITALS: BP 116/67
[2017-11-17 06:30] VITALS: BP 107/50
--- NOTE | 2017-11-17 07:08 | PN- Housestaff ---
Simi LANDAVERDE,Daniel 11/17/17 0707: Subjective Follow-up For: Pancytopenia Lower extremity swelling Subjective: Patient was seen and examined at bedside. He was resting comfortably. He had no acute events overnight. He reports an episode of loose stool, not watery and nonbloody, overnight. He reports improvement in his leg swelling and fatigue overall. He currently offers no other complaints but continues to express showed over his current condition. He denies any lightheadedness, dizziness, nausea, vomiting, chest pain, shortness of breath. Review of Systems Constitutional: Denies: chills, fever. Cardiovascular: Reports: peripheral edema. Denies: chest pain, palpitations. Respiratory: Denies: cough, short of breath. Gastrointestinal: Reports: diarrhea. Denies: melena, nausea, bloody stool, changes in stool. Genitourinary: Reports: no symptoms. Musculoskeletal: Reports: no symptoms. Objective Last 24 Hrs of Vital Signs/I&O Vital Signs Date Time Temp Pulse Resp B/P B/P Pulse O2 O2 Flow FiO2 Mean Ox Delivery Rate 11/17 0630 98.9 69 20 107/50 97 11/16 2229 98.8 74 18 116/67 97 Room Air 11/16 1343 98.7 74 18 102/52 94 Room Air Room Air Intake & Output 11/17 0800 11/17 0000 11/16 1600 Intake Total 250 1150 Output Total 800 Balance 250 350 Intake, Blood 350 Product Intake, IV 10 Intake, Oral 240 800 Number 0 1 Bowel Movements Output, Urine 800 Patient 156 lb Weight Physical Exam General Appearance: Alert, Oriented X3, Cooperative, No Acute Distress Skin Temp/Moisture Exam: Warm/Dry Sepsis Skin Exam (color): Pale Lymphatic: cervical lymphadenopathy Cardiovascular: Regular Rate, Normal S1, Normal S2, No Murmurs Lungs: Clear to Auscultation, Normal Air Movement Abdomen: Normal Bowel Sounds, Soft, No Tenderness Neurological: Normal Speech, Sensation Intact Extremities: No Clubbing, No Cyanosis, trace edema of the right lower extremity, improved from yesterday Current Medications: Current Medications Sig/Abigail Start time Last Medication Dose Route Stop Time Status Admin Acetaminophen 650 MG Q8P PRN 11/15 2345 AC PO Levothyroxine Sodium 0.15 MG DAILY AC 11/16 0700 AC 11/17 PO 0629 Oxybutynin Chloride 5 MG BID 11/16 1000 AC 11/16 PO 2245 Tramadol HCl 50 MG Q8P PRN 11/15 2345 AC PO Last 24 Hrs of Lab/Tonny Results Last 24 Hrs of Labs/Mics: Laboratory Tests 11/17/17 0757: CBC w Diff MAN DIFF ORDERED, RBC 2.43 L, MCV 86.9, MCH 29.9, RDW 18.3 H, MPV 9.4, Gran % 15.0 L, Lymphocytes % 78.6 H, Monocytes % 3.5, Eosinophils % 0.7, Basophils % 2.2 H, Absolute Granulocytes 0.1 L, Segmented Neutrophils 6 L, Absolute Lymphocytes 0.8 L, Lymphocytes 94 H, Absolute Monocytes 0 L, Absolute Eosinophils 0, Absolute Basophils 0, Platelet Estimate DECREASED, Poikilocytosis 3+, Anisocytosis 2+, Ovalocytes 2+, Elliptocytes 2+, PUBS MCHC 34.4 11/16/17 1639: CBC w Diff NO MAN DIFF REQ, RBC 2.18 L, MCV 87.2, MCH 30.1, RDW 19.8 H, MPV 9.2, Gran % 12.5 L, Lymphocytes % 79.7 H, Monocytes % 4.6, Eosinophils % 1.6, Basophils % 1.6, Absolute Granulocytes 0.1 L, Absolute Lymphocytes 0.8 L, Absolute Monocytes 0 L, Absolute Eosinophils 0, Absolute Basophils 0, PUBS MCHC 34.5 Assessment/Plan Assessment: Patient is a 72-year-old Citizen Of [place] male with a PMH significant for dementia, thyroid cancer status post thyroidectomy and radiation with subsequent hypothyroidism who presented to the ED complaining of fatigue and lower extremity swelling. #Pancytopenia Last available records from [place] were 12/07 and normal. Currently pancytopenic with cervical lymphadenopathy and history of cancer. Hep A, C and HIV serology was negative, hep B and tickborne diseases panel currently pending. I had a lengthy discussion with both the patient and his today at bedside of the potential differential diagnoses including infections and malignancies including leukemia and lymphoma. -Patient to go for bone marrow aspiration and biopsy today, discussed with the histology lab what workup needed -H/H improved to 7.3/21 status post 2 units PRBCs yesterday, will transfuse 1 more unit PRBCs after bone marrow biopsy. -The patient remained stable overnight will DC home with close follow-up with oncology as an outpatient. #L any swelling R >L Venous Doppler ultrasound was negative for signs of DVT. Leg swelling Has significantly improved today #Chronic medical problems including hypothyroidism. -Continue home dose of levothyroxine #DVT prophylaxis -ALPS, no pharmacologic DVT prophylaxis given thrombocytopenia #CODE STATUS -Full code Problem List: 1. Pancytopenia 2. Peripheral edema Pain Ratin Pain Location: none Pain Goal: Remain pain free Pain Plan: pain pathway Tomorrow's Labs & Rationales: cbc Jus Padilla MD 11/17/17 1211: Attending MD Review Statement Attending Statement Attending MD Statement: examined this patient, discuss w/resident/PA/VENDING SUPERVISOR, agreed w/resident/PA/VENDING SUPERVISOR, reviewed EMR data (avail), discussed with nursing, discussed with case mgmt, amended to note Attending Assessment/Plan: Patient seen and examined. Resting comfortably and not in acute distress. Reported by nursing staff. Hemoglobin level improved following transfusion yesterday to 7.3. Stool guaiac is negative. He has no new complaints today. He does admit to feeling stronger. He will hopefully have his bone marrow biopsy done today. Recommendations: -Scheduled to undergo bone marrow biopsy hopefully today. -Transfuse another unit of PRBC post procedure to further optimize his hemoglobin level prior to discharge. -If he remains clinically stable overnight he will be discharged home tomorrow to follow-up with the oncology service as an outpatient.
--- NOTE | 2017-11-17 07:27 | PN- Hematology ---
Subjective Subjective: Offers no new complaints, 12 point review of systems unchanged Objective Vital Signs and I&Os Vital Signs Date Time Temp Pulse Resp B/P B/P Pulse O2 O2 Flow FiO2 Mean Ox Delivery Rate 11/17 0630 98.9 69 20 107/50 97 11/16 2229 98.8 74 18 116/67 97 Room Air 11/16 1343 98.7 74 18 102/52 94 Room Air Room Air Intake & Output 11/17 0800 11/17 0000 11/16 1600 11/16 0800 11/16 0000 11/15 1600 Intake Total 250 1150 470 0 Output Total 800 550 Balance 250 350 -80 0 Intake, Blood 350 350 Product Intake, IV 10 Intake, Oral 240 800 120 0 Number 0 1 Bowel Movements Output, Urine 800 550 Patient 156 lb 156 lb 160 lb Weight Weight Reported by Patient Standing Scale Measurement Method Gen.: in NAD ENT: Sclera anicteric Chest: Normal respiratory effort, decreased breath sounds Cor: RRR, no extra sounds Abdomen: Soft, bowel sounds present, no tenderness, no rebound Extremities: Without clubbing, cyanosis, or asymmetric edema Neurology: Awake Current Medications: Current Medications Sig/Abigail Start time Last Medication Dose Route Stop Time Status Admin Acetaminophen 650 MG Q8P PRN 11/15 2345 AC PO Levothyroxine Sodium 0.15 MG DAILY AC 11/16 0700 AC 11/17 PO 0629 Oxybutynin Chloride 5 MG BID 11/16 1000 AC 11/16 PO 2245 Tramadol HCl 50 MG Q8P PRN 11/15 2345 AC PO Results Last 24 Hours of Lab Results: Laboratory Tests 11/16 11/16 1639 0735 Chemistry Sodium (137 - 145 mmol/L) 138 Potassium (3.5 - 5.1 mmol/L) 4.3 Chloride (98 - 107 mmol/L) 104 Carbon Dioxide (22 - 30 mmol/L) 28 Anion Gap (5 - 16) 6 BUN (9 - 20 mg/dL) 26 H Creatinine (0.7 - 1.2 mg/dL) 0.8 Estimated GFR (>60 ml/min) > 60 BUN/Creatinine Ratio (7 - 25 %) 32.5 H Hematology CBC w Diff NO MAN DIFF REQ MAN DIFF ORDERED WBC (4.8 - 10.8 /CUMM) 1.0 *L 0.9 *L RBC (4.70 - 6.10 /CUMM) 2.18 L 2.04 L Hgb (14.0 - 18.0 G/DL) 6.6 *L 6.2 *L Hct (42 - 52 %) 19.0 *L 18.0 *L MCV (80.0 - 94.0 FL) 87.2 88.2 MCH (27.0 - 31.0 PG) 30.1 30.2 RDW (11.5 - 14.5 %) 19.8 H 21.1 H Plt Count (130 - 400 /CUMM) 76 L 77 L MPV (7.4 - 10.4 FL) 9.2 9.4 Gran % (42.2 - 75.2 %) 12.5 L 18.0 L Lymphocytes % (20.5 - 51.1 %) 79.7 H 73.3 H Monocytes % (1.7 - 9.3 %) 4.6 4.5 Eosinophils % (0 - 5 %) 1.6 3.0 Basophils % (0.0 - 2.0 %) 1.6 1.2 Absolute Granulocytes (1.4 - 6.5 /CUMM) 0.1 L 0.2 L Segmented Neutrophils (42.2 - 75.2 %) 12 L Absolute Lymphocytes (1.2 - 3.4 /CUMM) 0.8 L 0.7 L Lymphocytes (20.5 - 51.1 %) 86 H Monocytes (1.7 - 9.3 %) 2 Absolute Monocytes (0.10 - 0.60 /CUMM) 0 L 0 L Absolute Eosinophils (0.0 - 0.7 /CUMM) 0 0 Absolute Basophils (0.0 - 0.2 /CUMM) 0 0 Platelet Estimate (ADEQUATE) VERIFIED BY SMEAR Poikilocytosis 1+ Anisocytosis 1+ Ovalocytes 1+ Elliptocytes FEW PUBS MCHC (33.0 - 37.0 G/DL) 34.5 34.2 Recent Imaging Studies: Doppler ultrasound-no DVT Assessment/Plan Assessment/Recommendations: Pancytopenia-bone marrow aspiration biopsy scheduled today Recommend- Transfuse red blood cells as necessary Please make sure-bone marrow-to include Routine prep Flow cytometry Cytogenetics
[2017-11-17 09:47] LABS: ABSOLUTE BASOPHIL COUNT 0 /CUMM (0.0-0.2); ABSOLUTE EOSINOPHIL COUNT 0 /CUMM (0.0-0.7); ABSOLUTE GRANULOCYTE CT 0.1 /CUMM (1.4-6.5); ABSOLUTE MONOCYTE COUNT 0 /CUMM (0.10-0.60); MEAN CORPUSCULAR VOLUME 86.9 FL (80.0-94.0); MEAN PLATELET VOLUME 9.4 FL (7.4-10.4)
[2017-11-17 09:59] LABS: ABSOLUTE LYMPH COUNT 0.8 /CUMM (1.2-3.4); BASOPHIL % 2.2 % (0.0-2.0); EOSINOPHIL % 0.7 % (0-5); HEMATOCRIT 21.1 % (42-52); MEAN CORPUSCULAR HGB 29.9 PG (27.0-31.0); MEAN CORPUSCULAR HGB CONC 34.4 G/DL (33.0-37.0); PLATELET COUNT 71 /CUMM (130-400); RBC DISTRIBUTION WIDTH 18.3 % (11.5-14.5); RED BLOOD CELL CT 2.43 /CUMM (4.70-6.10)
[2017-11-17 14:12] VITALS: BP 100/62
[2017-11-17 16:30] VITALS: BP 122/84
[2017-11-17 16:35] VITALS: BP 106/60
--- NOTE | 2017-11-17 16:53 | CT SCAN REPORT ---
CLINICAL HISTORY: This patient is a 72-year-old man with pancytopenia, who presents to interventional radiology for a CT-guided bone marrow aspiration and core biopsy. PROCEDURES: 1. Limited preprocedure CT of the pelvis. 2. CT-guided bone marrow aspiration and core biopsy of left iliac bone. PHYSICIANS: Dr. Go (attending). The attending radiologist was present during the procedure and related imaging, and reviewed the report. MEDICATIONS: 10 mL of 1% lidocaine SQ. 50 mcg fentanyl for analgesia. COMPLICATIONS: None. ESTIMATED BLOOD LOSS: <5 mL SPECIMENS: 8 mL bone marrow aspirate and 13 g core biopsy TOTAL DLP: 185 mGy-cm. PROCEDURE NOTE: Informed consent was obtained from the patient prior to the procedure. During this process, the procedure and potential alternatives were explained along with the intended outcome and benefits. The risks of the procedure, including the possibility of an unsuccessful procedure, as well as the risk of not doing the procedure, were discussed. The patient was given the opportunity to ask questions regarding the procedure and appeared competent to make decisions. A signed consent form documenting this discussion was placed in the medical record. A time-out procedure was performed. The patient was placed prone on the CT table. A limited CT of the pelvis was performed to localize the left iliac bone and to choose appropriate needle entry and trajectory. The left pelvis was prepped and draped in usual sterile fashion. The skin and subcutaneous tissues were anesthetized with lidocaine. Under CT guidance, an 11-gauge Oncontrol bone access needle was advanced down to the surface of the iliac bone, across the cortex, and into the marrow space using the OncTello power driver trainee with positioning confirmed with CT evaluation. A 4 mL bone marrow aspirate was obtained and submitted in a lavender top tube for flow cytometry. A 1.5 cm core biopsy was then obtained using the 13-gauge biopsy needle through the 11-gauge access needle. This was submitted in formalin for histology. A second 1.5 cm core biopsy was obtained and submitted in RPMI. A second 4 mm bone marrow aspirate was obtained and submitted in a green top tube for cytogenetics. The access needle was removed. Hemostasis achieved with manual compression and a sterile bandage was applied. FINDINGS: Successful needle placement into the left iliac bone. IMPRESSION: Successful CT-guided bone marrow aspiration and core biopsy of the left iliac bone. PLAN: The patient was stable after the procedure and was transferred to the recovery area. The patient was transferred back to his room upon completion of the procedure.
[2017-11-17 22:33] VITALS: BP 100/56
[2017-11-18 06:28] VITALS: BP 112/58
--- NOTE | 2017-11-18 07:11 | PN- Housestaff ---
Simi LANDAVERDE,Daniel 11/18/17 0711: Subjective Follow-up For: Pancytopenia Subjective: patient was seen and examined at bedside. He was resting comfortably. The acute events overnight. He reports no repeat episodes of diarrhea, and tolerated the bone marrow biopsy yesterday well. He states that he feels lightheaded with ambulation but overall has been steady on his feet. He currently denies any nausea, vomiting, fever, chills, chest pain, shortness of breath. Review of Systems Constitutional: Denies: chills, fever. Cardiovascular: Denies: chest pain, palpitations. Respiratory: Denies: cough, short of breath. Gastrointestinal: Denies: diarrhea, melena, nausea, bloody stool, changes in stool. Genitourinary: Reports: no symptoms. Musculoskeletal: Reports: no symptoms. Objective Last 24 Hrs of Vital Signs/I&O Vital Signs Date Time Temp Pulse Resp B/P B/P Pulse O2 O2 Flow FiO2 Mean Ox Delivery Rate 11/18 0628 98.5 65 20 112/58 96 11/17 2233 97.8 68 18 100/56 96 Room Air 11/17 1635 98.9 74 18 106/60 96 Room Air Room Air 11/17 1630 98.6 88 18 122/84 95 Room Air Room Air 11/17 1412 98.8 64 20 100/62 97 Room Air Intake & Output 11/18 0800 11/18 0000 11/17 1600 Intake Total 720 1145 300 Output Total 1250 900 850 Balance -530 245 -550 Intake, Blood 350 Product Intake, IV 600 75 300 Intake, Oral 120 720 0 Number 0 Bowel Movements Output, Urine 1250 900 850 Physical Exam General Appearance: Alert, Oriented X3, Cooperative, No Acute Distress Skin Temp/Moisture Exam: Warm/Dry Sepsis Skin Exam (color): Normal for Ethnicity Cardiovascular: Regular Rate, Normal S1, Normal S2, No Murmurs Lungs: Clear to Auscultation, Normal Air Movement Abdomen: Normal Bowel Sounds, Soft, No Tenderness Neurological: Normal Gait, Sensation Intact Extremities: No Clubbing, No Cyanosis, No Edema Current Medications: Current Medications Sig/Abigail Start time Last Medication Dose Route Stop Time Status Admin Acetaminophen 650 MG Q8P PRN 11/15 2345 AC PO Dextrose/Sodium 1,000 ML Q13H 11/17 1000 AC 12/29 Chloride IV 0534 Fentanyl Citrate 0 .STK-MED ONE 11/17 1530 DC .ROUTE Levothyroxine Sodium 0.15 MG DAILY AC 11/16 0700 AC 11/18 PO 0534 Lidocaine 1 ML .STK-MED ONE 11/17 1631 DC ID 11/17 1632 Oxybutynin Chloride 5 MG BID 11/16 1000 AC 11/17 PO 2105 Tramadol HCl 50 MG Q8P PRN 11/15 2345 AC PO Last 24 Hrs of Lab/Tonny Results Last 24 Hrs of Labs/Mics: Laboratory Tests 11/18/17 1406: PT 15.6 H, INR 1.49 H, APTT 33, Fibrinogen Activity 230 11/18/17 0715: CBC w Diff MAN DIFF ORDERED, RBC 2.54 L, MCV 87.0, MCH 29.9, RDW 18.7 H, MPV 9.9, Gran % 15.7 L, Lymphocytes % 76.5 H, Monocytes % 2.7, Eosinophils % 3.3, Basophils % 1.8, Absolute Granulocytes 0.2 L, Segmented Neutrophils 18 L, Band Neutrophils 1, Absolute Lymphocytes 0.7 L, Lymphocytes 77 H, Monocytes 4, Absolute Monocytes 0 L, Absolute Eosinophils 0, Absolute Basophils 0, Platelet Estimate DECREASED, Poikilocytosis 1+, Anisocytosis 1+, Ovalocytes 1+, Elliptocytes 1+, PUBS MCHC 34.3 Assessment/Plan Assessment: Patient is a 72-year-old [place] male with a PMH significant for dementia, thyroid cancer status post thyroidectomy and radiation with subsequent hypothyroidism who presented to the ED complaining of fatigue and lower extremity swelling. #Pancytopenia Last available records from [place] were 12/07 and normal. Currently pancytopenic with cervical lymphadenopathy and history of cancer. Hep A, C and HIV serology was negative, tickborne diseases panel currently pending. Hep B core antigen was equivocal after run twice in the [place] lab, was [facility] workup. Repeat of coagulation studies and fibrinogen activity shows that these have remained stable. -Patient went for bone marrow biopsy yesterday, awaiting results of flow cytometry, cytogenetics and histology -H/H improved to 7.6/22.1 status post 1 units PRBCs last night (4 units total), will transfuse 1 more unit PRBCs today, if patient remains stable overnight and hemoglobin is >8 tomorrow patient may be DC'd home with oncology follow-up #mild protein calorie malnutrition Patient meets criteria for mild protein calorie malnutrition, nutritional education was given #L any swelling R >L, resolved Venous Doppler ultrasound was negative for signs of DVT. #Chronic medical problems including hypothyroidism. -Continue home dose of levothyroxine #DVT prophylaxis -ALPS, no pharmacologic DVT prophylaxis given thrombocytopenia #CODE STATUS -Full code Problem List: 1. Pancytopenia Pain Ratin Pain Location: none Pain Goal: Remain pain free Pain Plan: pain pathway Tomorrow's Labs & Rationales: cbc Jus Padilla MD 11/18/17 1319: Attending MD Review Statement Attending Statement Attending MD Statement: examined this patient, discuss w/resident/PA/AUTOMATION CONTROL INTEGRATOR, agreed w/resident/PA/AUTOMATION CONTROL INTEGRATOR, reviewed EMR data (avail), discussed with nursing, discussed with case mgmt, amended to note Attending Assessment/Plan: Patient seen and examined. Resting comfortably and not in acute distress. No issues overnight.hemoglobin is 7.6 this morning, this is after a total of 4 units of blood. Stool guaiac is negative. LDH is 218 and not suggestive of hemolysis. Take panel is negative for the past babesiosis. Case discussed with the hematology service recommendations are to transfuse another unit of blood to bring hemoglobin level greater than 8. Patient has no new complaints this morning. Still reports feeling lethargic. He is able to ambulate around the unit unassisted. Once were able to bring up his hemoglobin level will discharged home to follow-up with hematology service as an outpatient for results of his bone marrow biopsy done yesterday.
--- NOTE | 2017-11-18 07:12 | PN- Hematology ---
Subjective Subjective: He had bone marrow biopsy done yesterday. He tolerated it well. He denies any pain. He had no fever or chills. He has no nausea or vomiting. His legs are less swollen. He feels better since coming here. Review of Systems Constitutional: Reports: weakness. Denies: chills, fever. Cardiovascular: Denies: chest pain. Respiratory: Denies: short of breath. Gastrointestinal: Denies: abdominal pain, diarrhea. Genitourinary: Denies: dysuria. Musculoskeletal: Denies: back pain. Neurological/Psychological: Denies: anxiety, confusion. All Other Systems: Reviewed and Negative Objective Vital Signs and I&Os Vital Signs Date Time Temp Pulse Resp B/P B/P Pulse O2 O2 Flow FiO2 Mean Ox Delivery Rate 11/18 628 98.5 65 20 112/58 96 11/17 2233 97.8 68 18 100/56 96 Room Air 11/17 1635 98.9 74 18 106/60 96 Room Air Room Air 11/17 1630 98.6 88 18 122/84 95 Room Air Room Air 11/17 1412 98.8 64 20 100/62 97 Room Air Intake & Output 11/18 0800 11/18 0000 11/17 1600 11/17 0800 11/17 0000 11/16 1600 Intake Total 720 1145 880 858 5172 Output Total 1250 900 850 800 Balance -530 245 -550 250 350 Intake, Blood 350 350 Product Intake, IV 600 75 300 10 Intake, Oral 120 720 0 240 800 Number 0 0 1 Bowel Movements Output, Urine 1250 900 850 800 Patient 70.959 kg Weight Physical Exam General Appearance: no apparent distress, alert, awake, comfortable Head: atraumatic Neck: supple Respiratory: chest non-tender, quiet respiration, decreased breath sounds Cardiovascular: regular rate/rhythm Abdomen: normal bowel sounds, soft, splenomegaly Extremities: no edema Skin: warm/dry Lymphatic: no anterior cervical dyan Current Medications: Current Medications Sig/Abigail Start time Last Medication Dose Route Stop Time Status Admin Acetaminophen 650 MG Q8P PRN 11/15 2345 AC PO Dextrose/Sodium 1,000 ML Q13H 11/17 1000 AC 11/18 Chloride IV 0534 Fentanyl Citrate 0 .STK-MED ONE 11/17 1530 DC .ROUTE Levothyroxine Sodium 0.15 MG DAILY AC 11/16 0700 AC 12/29 PO 0534 Lidocaine 1 ML .STK-MED ONE 11/17 1631 DC ID 11/17 1632 Oxybutynin Chloride 5 MG BID 11/16 1000 AC 11/17 PO 2105 Tramadol HCl 50 MG Q8P PRN 11/15 2345 AC PO Results Last 24 Hours of Lab Results: Laboratory Tests 11/17 11/17 1600 0757 Hematology CBC w Diff MAN DIFF ORDERED WBC (4.8 - 10.8 /CUMM) 1.0 *L RBC (4.70 - 6.10 /CUMM) 2.43 L Hgb (14.0 - 18.0 G/DL) 7.3 *L Hct (42 - 52 %) 21.1 L MCV (80.0 - 94.0 FL) 86.9 MCH (27.0 - 31.0 PG) 29.9 RDW (11.5 - 14.5 %) 18.3 H Plt Count (130 - 400 /CUMM) 71 L MPV (7.4 - 10.4 FL) 9.4 Gran % (42.2 - 75.2 %) 15.0 L Lymphocytes % (20.5 - 51.1 %) 78.6 H Monocytes % (1.7 - 9.3 %) 3.5 Eosinophils % (0 - 5 %) 0.7 Basophils % (0.0 - 2.0 %) 2.2 H Absolute Granulocytes (1.4 - 6.5 /CUMM) 0.1 L Segmented Neutrophils (42.2 - 75.2 %) 6 L Absolute Lymphocytes (1.2 - 3.4 /CUMM) 0.8 L Lymphocytes (20.5 - 51.1 %) 94 H Absolute Monocytes (0.10 - 0.60 /CUMM) 0 L Absolute Eosinophils (0.0 - 0.7 /CUMM) 0 Absolute Basophils (0.0 - 0.2 /CUMM) 0 Platelet Estimate (ADEQUATE) DECREASED Poikilocytosis 3+ Anisocytosis 2+ Ovalocytes 2+ Elliptocytes 2+ PUBS MCHC (33.0 - 37.0 G/DL) 34.4 Miscellaneous Leukemic Chromosome Anal Pending Flow Cytometry Specimen Pending Assessment/Plan Assessment/Recommendations: Mr. Chin is a 72-year-old male who presents with pancytopenia. He has a previous erythrocytosis. He has normal vitamin B12 and folate level. His reticulocyte count is low. Presentation is concerning for a primary bone marrow process. 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 He has underwent bone marrow biopsy yesterday. Results are pending. He has received 4 units of pRBC so far. Last transfusion was yesterday. Recommendations: -Follow up bone marrow pathology: cytogenetic, flow cytometry, histology -Transfusion as needed -Follow up with Dr. Rosas Please call [phone] with any questions/concerns. Problem List: 1. Pancytopenia
[2017-11-18 09:26] LABS: ABSOLUTE BASOPHIL COUNT 0 /CUMM (0.0-0.2); ABSOLUTE EOSINOPHIL COUNT 0 /CUMM (0.0-0.7); ABSOLUTE GRANULOCYTE CT 0.2 /CUMM (1.4-6.5); ABSOLUTE LYMPH COUNT 0.7 /CUMM (1.2-3.4); ABSOLUTE MONOCYTE COUNT 0 /CUMM (0.10-0.60); BASOPHIL % 1.8 % (0.0-2.0); EOSINOPHIL % 3.3 % (0-5); GRANULOCYTE % 15.7 % (42.2-75.2); HEMATOCRIT 22.1 % (42-52); MEAN CORPUSCULAR HGB 29.9 PG (27.0-31.0); MEAN CORPUSCULAR HGB CONC 34.3 G/DL (33.0-37.0); MEAN PLATELET VOLUME 9.9 FL (7.4-10.4); PLATELET COUNT 68 /CUMM (130-400); RBC DISTRIBUTION WIDTH 18.7 % (11.5-14.5); RED BLOOD CELL CT 2.54 /CUMM (4.70-6.10)
[2017-11-18 14:01] VITALS: BP 102/58
[2017-11-18 14:43] LABS: PT 15.6 SEC (9.4-12.5); PTT 33 SEC (25-37)
--- NOTE | 2017-11-18 15:50 | Patient Discharge Instructions ---
Discharge Instructions General Discharge Information You were seen/treated for: Pancytopenia Special Instructions: Please follow-up with your primary care physician within 1 week of discharge. Please follow-up with Dr. Rosas within one week of discharge to discuss futher work-up and diagnosis for you pancytopenia based on the results of your bone marrow biopsy. Hep B core antigen test was sent out due to inconclusive results, will have to follow-up these results as an outpatient. If you should have worsening fatigue, shortness of breath, chest pain, or bleeding call your doctor or return to the ER. Diet Additional DIET Information: Follow neutropenic diet as outlined in discharge education information. Acute Coronary Syndrome Inclusion Criteria At DC or during hospital stay patient has or had the following: ACS DIAGNOSIS No Discharge Core Measures Meds if any: Prescribed or Continued at Discharge Meds if any: NOT Prescribed or Continued at Discharge Congestive Heart Failure Inclusion Criteria At DC or during hospital stay patient has or had the following: CHF DIAGNOSIS No Discharge Core Measures Meds if any: Prescribed or Continued at Discharge Meds if any: NOT Prescribed or Continued at Discharge Cerebrovascular accident Inclusion Criteria At DC or during hospital stay patient has or had the following: CVA/TIA Diagnosis No Discharge Core Measures Meds if any: Prescribed or Continued at Discharge Meds if any: NOT Prescribed or Continued at Discharge Venous thromboembolism Inclusion Criteria VTE Diagnosis No VTE Type NONE VTE Confirmed by (Test) NONE Discharge Core Measures - Per Current guidelines, there needs to be overlap - treatment for the first 5 days of Warfarin therapy. - If discharged on Warfarin prior to 5 days of - overlap therapy, the patient will need to be - assessed for post discharge needs including - *Post discharge parental anticoagulation - *Warfarin and/or parental anticoagulation education - *Follow up date to check INR post discharge At least 5 days overlap therapy as Inpatient No Meds if any: Prescribed or Continued at Discharge Note: Overlap Therapy is Warfarin and Anticoagulant Meds if any: NOT Prescribed or Continued at Discharge
[2017-11-18 21:38] VITALS: BP 118/60
[2017-11-19 06:30] VITALS: BP 108/60
[2017-11-19 09:18] LABS: ABSOLUTE BASOPHIL COUNT 0 /CUMM (0.0-0.2); ABSOLUTE EOSINOPHIL COUNT 0 /CUMM (0.0-0.7); ABSOLUTE GRANULOCYTE CT 0.2 /CUMM (1.4-6.5); ABSOLUTE MONOCYTE COUNT 0 /CUMM (0.10-0.60); EOSINOPHIL % 0.5 % (0-5); MEAN CORPUSCULAR HGB 29.9 PG (27.0-31.0); PLATELET COUNT 61 /CUMM (130-400)
--- NOTE | 2017-11-19 09:27 | PN- Housestaff ---
ThanhCorby 11/19/17 0915: Subjective Follow-up For: Pancytopenia Subjective: No overnight events. Patient remained afebrile overnight. Patient seen and examined this morning. He was sitting in chair comfortably. He denied any chest pain, short of breath, nausea, chills, fever, lightheadedness, palpitation , abdominal pain dysuria. Patient received blood transfusion last night we will follow his H&H. If his Hb is more than 8 then might be will discharge the patient today. Patient will follow Dr. Rosas for further workup for pancytopenia as outpatient. Review of Systems Constitutional: Reports: no symptoms. EENTM: Reports: no symptoms. Cardiovascular: Reports: no symptoms. Respiratory: Reports: no symptoms. Gastrointestinal: Reports: no symptoms. Genitourinary: Reports: no symptoms. Musculoskeletal: Reports: no symptoms. Neurological/Psychological: Reports: no symptoms. Objective Last 24 Hrs of Vital Signs/I&O Vital Signs Date Time Temp Pulse Resp B/P B/P Pulse O2 O2 Flow FiO2 Mean Ox Delivery Rate 11/19 0630 98.3 70 20 108/60 95 11/18 2138 97.6 70 20 118/60 100 Room Air 11/18 1401 98.3 70 18 102/58 97 Room Air Room Air Intake & Output 11/19 1600 11/19 0800 11/19 0000 Intake Total 240 1070 Output Total 325 Balance 240 745 Intake, Blood 350 Product Intake, Oral 240 720 Output, Urine 325 Physical Exam General Appearance: Alert, Oriented X3, Cooperative, No Acute Distress Skin Temp/Moisture Exam: Warm/Dry Sepsis Skin Exam (color): Normal for Ethnicity HEENT: Atraumatic, PERRLA, EOMI Neck: Supple Cardiovascular: Normal S1, Normal S2 Lungs: Clear to Auscultation Abdomen: Soft, No Tenderness Neurological: Normal Tone, Sensation Intact Extremities: No Edema Assessment/Plan Assessment: Patient is a 72-year-old Gadiel male with a PMH significant for dementia, thyroid cancer status post thyroidectomy and radiation with subsequent hypothyroidism who presented to the ED complaining of fatigue and lower extremity swelling. #Pancytopenia Last available records from [facility] were 12/07 and normal. Currently pancytopenic with cervical lymphadenopathy and history of cancer. Hep A, C and HIV serology was negative, tickborne diseases panel currently pending. Hep B core antigen was equivocal after run twice in the [facility], was sent out to [facility] for further workup. Repeat of coagulation studies and fibrinogen activity shows that these have remained stable. -Patient went for bone marrow biopsy yesterday, awaiting results of flow cytometry, cytogenetics and histology -H/H improved to 7.6/22.1 status post 1 units PRBCs last night (4 units total), will transfuse 1 more unit PRBCs today, if patient remains stable overnight and hemoglobin is >8 tomorrow patient may be DC'd home with oncology follow-up -Patient received blood transfusion last night we will check his hemoglobin if it's about 8 so he can be discharged today. Follow as outpatient for further workup for pancytopenia.(11/19/17) #mild protein calorie malnutrition Patient meets criteria for mild protein calorie malnutrition, nutritional education was given #L any swelling R >L, resolved Venous Doppler ultrasound was negative for signs of DVT. #Chronic medical problems including hypothyroidism. -Continue home dose of levothyroxine #DVT prophylaxis -ALPS, no pharmacologic DVT prophylaxis given thrombocytopenia #CODE STATUS -Full code Problem List: 1. Pancytopenia Pain Ratin Pain Location: none Pain Goal: Remain pain free Pain Plan: tylenol for mild pain Tomorrow's Labs & Rationales: cbc Randy LANDAVERDE,Jus 11/19/17 1140: Attending MD Review Statement Attending Statement Attending MD Statement: examined this patient, discuss w/resident/PA/HOUSEHOLD ASSISTANT, agreed w/resident/PA/HOUSEHOLD ASSISTANT, reviewed EMR data (avail), discussed with nursing, discussed with case mgmt, amended to note Attending Assessment/Plan: Patient seen and examined. Resting comfortably and not in acute distress. No issues overnight reported by nursing staff. He was observed ambulating freely around the unit without assistance. He reports feeling better compared to presentation. She improvement of his hemoglobin to 8.2. Platelet count although low remained stable. White cell count also remained stable at 1.0. He is currently medically stable to be discharged home today and has been advised to follow-up with the oncology service of [facility] Rosas MD as an outpatient for results of his bone marrow biopsy and further management recommendations.
[2017-11-19 09:43] LABS: ABSOLUTE LYMPH COUNT 0.8 /CUMM (1.2-3.4); BASOPHIL % 2.1 % (0.0-2.0); GRANULOCYTE % 17.1 % (42.2-75.2); HEMATOCRIT 23.9 % (42-52); MEAN CORPUSCULAR HGB CONC 34.3 G/DL (33.0-37.0); MEAN CORPUSCULAR VOLUME 87.2 FL (80.0-94.0); MEAN PLATELET VOLUME 9.3 FL (7.4-10.4); RBC DISTRIBUTION WIDTH 18.2 % (11.5-14.5); RED BLOOD CELL CT 2.74 /CUMM (4.70-6.10)
--- NOTE | 2017-11-20 15:30 | Discharge Summary ---
See Addendum Visit Information Visit Dates Admission Date: 11/15/17 Discharge Date: 11/19/17 Hospital Course Course Attending Physician: Jus Padilla MD Primary Care Physician: Perry LANDAVERDE,Rome Mack Hospital Course: Patient is a 72-year-old Gadiel male with a past medical history significant for Alzheimer's dementia, thyroid cancer status post thyroidectomy and radiation therapy, and hypothyroidism, who presented to the [facility] ED complaining of a two week history of fatigue, a two day history of R lower extremity edema. He also endorsed a 35 pound weight losswithin the last 3 months and lymphadenopathy. VS on admission: T 98.6, P 80, RR 16, BP 122/60, Pulse ox 99% on room air Labs on admission: WBC 1.0, absolute neutrophil count of 176, H/H 5.9/17.1 , platelets 83, PT 14.9, INR 1.42 Patient was admitted to the general medicine floor for treatment of the following problems: #Pancytopenia On exam patient was pale with cervical lymphadenopathy and splenomegaly. CT scan showed lymphadenopathy, splenomegaly, and a lung nodule which will require close follow-up. Most recent bloodwork, done November of 2016 showed no significant abnormalities. Stool was guaiac negative. Patient was kept on neutropenic precautions. Heme/Onc was consulted, and bone marrow biopsy was pursued. Patient received 5 units PRBCs, and on discharge his H/H was 8.2/23.9. Patient was discharged with instructions to follow up with Dr. Valdez as an outpatient. 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 #RLE edema DVT was ruled out with venous doppler US. Edema was 1-2+ on admission but resolved by discharge date with leg elevation. DVT prophylaxis was addressed with ALPS, pharmacologic prophylaxis was not used due to thrombocytopenia. Allergies: Coded Allergies: No Known Allergies (11/15/17) Significant Procedures: Bone marrow aspiration and biopsy CT Chest, abd, and pelvis CT CHEST: There is no focal consolidation or pneumothorax. Trace bilateral pleural effusions. There is partially imaged lymphadenopathy within the infrahyoid neck bilaterally within level III and level VA. The partially imaged right internal jugular vein is narrowed by adjacent cervical adenopathy. There is dependent atelectasis bilaterally. No focal consolidation, pleural effusion, or pneumothorax. There is a 7 mm groundglass nodule at the left lung apex on image 9 of series 3. A 6-12 month follow-up CT is recommended per Fleischner criteria. The thoracic aorta is normal in caliber. There is a small pericardial effusion. No significant soft tissue findings within the chest. No acute osseous abnormalities. Degenerative changes throughout the thoracic spine. CT ABDOMEN/PELVIS: There are a few cysts within the liver. The adrenal glands, gallbladder, and pancreas are normal. There is marked splenomegaly and there is heterogeneous attenuation that appears well demarcated throughout areas of the spleen which could be secondary to lymphomatous infiltration and/or splenic infarct. Spleen measures up to 16 cm in size. The kidneys exhibit symmetric nephrograms without evidence of hydronephrosis or nephrolithiasis. There is a right renal cyst. The enlarged spleen results in mass effect on the left kidney which is otherwise unremarkable. The large and small bowel are normal in caliber without evidence of mechanical obstruction. No focal inflammatory changes adjacent to the large or the small bowel. The appendix is normal. Small volume intra-abdominal ascites. No free air. Small mesenteric and retroperitoneal lymph nodes. Small inguinal and iliac chain lymph nodes without pathologic size criteria lymphadenopathy in these areas. The prostate gland and seminal vesicles are enlarged. There are no acute osseous abnormalities. No significant soft tissue abnormality. IMPRESSION: CHEST: - There is partially imaged lymphadenopathy within the infrahyoid neck bilaterally within level III and level VA. The partially imaged right internal jugular vein is narrowed by adjacent cervical adenopathy. There is no mediastinal, hilar, or axillary lymphadenopathy. - There is a small pericardial effusion. There are trace bilateral pleural effusions. - There is a 7 mm groundglass nodule at the left lung apex on image 9 of series 3. A 6-12 month follow-up CT is recommended per Fleischner criteria. ABDOMEN/PELVIS: - There is marked splenomegaly and there is heterogeneous attenuation that appears well demarcated throughout areas of the spleen which could be secondary to lymphomatous infiltration and/or splenic infarct. The enlarged spleen results in mass effect on the left kidney. - The prostate gland and seminal vesicles are enlarged. - Small volume intra-abdominal ascites. - Small mesenteric and retroperitoneal lymph nodes. - Small inguinal and iliac chain lymph nodes without pathologic size criteria lymphadenopathy in these areas. RLE venous doppler US Normal triplex scan without evidence of deep venous thrombosis involving the lower extremity. Disposition Summary Disposition Principal Diagnosis: Acute lymphoblastic Leukemia Additional Diagnosis: Pancytopenia Discharge Disposition: home or self care Discharge Instructions General Discharge Information Code Status: Full Code Patient's Diet: Regular Patient's Activity: As tolerated Follow-Up Instructions/Appts: Follow-up with your primary care physician within 1 week of discharge. Follow-up with Dr. Rosas within one week of discharge to discuss futher work-up and diagnosis for you pancytopenia based on the results of your bone marrow biopsy. Hep B core antigen test was sent out due to inconclusive results, will have to follow-up these results as an outpatient. Medications at Discharge Discharge Medications: Continue taking these medications: Oxybutynin Chloride (Oxybutynin Chloride) 5 MG TABLET 1 Tablet ORAL TWICE DAILY Qty = 180 Comments: Last Taken: 11/19/17 Time: 9:00 AM Memantine HCl (Namenda) 10 MG TABLET 1 Tablet ORAL TWICE DAILY Qty = 180 Comments: NOT GIVEN IN HOSPITAL Levothyroxine Sodium (Levothyroxine Sodium) 150 MCG TABLET 1 Tablet ORAL DAILY Qty = 90 Comments: Last Taken: 11/19/17 Time: 5:15 AM Copies To: Perry LANDAVERDE,Rome Mack; Ralph LANDAVERDE,Marck Goyal
== END 2017-11-19 13:16 | DRG 835 ==
LOC: ERH 11:38 → ERHI 19:18 → 2NB 19:18 → ENRESERV 21:46 → ENTRNSPT 22:19 → 2NB 22:42 → CMPTRNSPT 11-16 07:30 → 2NB 11-16 07:57 → ENPENDDIS 11-19 11:55 → ENTRNSPT 11-19 12:51 → EDTRNSPT 11-19 13:07 → EDTRNSPTSTS 11-19 13:07 → 2NB 11-19 13:16 → CMPTRNSPT 11-19 13:25
PROVIDERS: Dermatology; Emergency Medicine; Internal Medicine Endocrinology, Diabetes & Metabolism
PROC: 30233N1 Transfusion of Nonautologous Red Blood Cells into Peripheral Vein, Percutaneous Approach (ICD-10-PCS; 2017-11-15)
PROC: 07DR3ZX Extraction of Iliac Bone Marrow, Percutaneous Approach, Diagnostic (ICD-10-PCS; principal; 2017-11-17)
DX: C91.00 Acute lymphoblastic leukemia not having achieved remission (principal); D61.818 Other pancytopenia; E44.1 Mild protein-calorie malnutrition; G30.9 Alzheimer's disease, unspecified; F02.80 Dementia in other diseases classified elsewhere, unspecified severity, without behavioral disturbance, psychotic disturbance, mood disturbance, and anxiety; E03.9 Hypothyroidism, unspecified; K59.09 Other constipation; Z68.21 Body mass index [BMI] 21.0-21.9, adult; Z85.850 Personal history of malignant neoplasm of thyroid; Z87.891 Personal history of nicotine dependence
CPT/HCPCS: 2NBP; 86317; 86704; 87798; 36415; 74177; 77012; 81003; 82436; 86920; 87389; 88184; 88261; 88267; J7042; P9016